=== PATIENT | female | born 1955 | race Caucasian/White ===

== ENCOUNTER 2017-10-08 15:48 | Emergency (ER) | payer OTHER ==
[2017-10-08 16:06] VITALS: BP 188/101; PULSE 116; TEMP 98.3; BMI 34.3
--- NOTE | 2017-10-08 16:06 | PDOC ---
Rapid Medical Evaluation Chief Complaint: Blood Pressure Problem Time Seen by Provider: 10/08/17 16:03 Medical Evaluation: 10/08/17 16:04 I have performed a brief in-person evaluation of this patient. The patient presents with a chief complaint of:Sent in Dr Juan for elevated BP in office today. Pt has HTN and non-compliant w/ meds, NIDDM. Denies any symptoms Pertinent physical exam findings:BP 188/101 I have ordered the following:nothing The patient will proceed to the ED for further evaluation.
== END 2017-10-08 21:28 | disposition left against medical advice (07) ==
LOC: JER 15:48
DX: Z53.21 Procedure and treatment not carried out due to patient leaving prior to being seen by health care provider (principal)
CPT/HCPCS: 99281-25

== ENCOUNTER 2025-02-19 07:05 | Emergency (ER) | payer OTHER ==
[2025-02-19 07:14] VITALS: RESP 18; BMI 32.2
[2025-02-19 11:19] VITALS: BP 128/80; PULSE 82; TEMP 97.7
== END 2025-02-19 11:59 | disposition home or self-care (01) ==
LOC: JER 07:05
DX: N64.9 Disorder of breast, unspecified (principal); R00.0 Tachycardia, unspecified
CPT/HCPCS: 76604-TC; 99284-25